=== PATIENT | female | born 1990 | race Caucasian/White ===

== ENCOUNTER 2016-12-15 03:45 | Emergency (ER) | payer BC ==
[2016-12-15 03:53] VITALS: BP 128/79
[2016-12-15] MEDS ORDERED: ACETAMINOPHEN 325 MG TABLET PO ONE (04:11)
== END 2016-12-15 06:25 | disposition left against medical advice (07) ==
LOC: ER 03:45
DX: Z53.9 Procedure and treatment not carried out, unspecified reason (principal); H92.09 Otalgia, unspecified ear